=== PATIENT | male | born 1960 | race African-American/Black ===

== ENCOUNTER 2023-11-26 23:17 | Inpatient (IN) | payer OTHER, MEDICARE, SELFPAY ==
[2023-11-26 23:25] VITALS: BP 164/68; PULSE 60; RESP 18; TEMP 36.6; O2SAT 99
[2023-11-26 23:52] VITALS: BMI 25.5
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
[2023-11-27 08:16] VITALS: BP 153/84; PULSE 81; RESP 20; TEMP 36.1; O2SAT 97
[2023-11-27 08:18] VITALS: BP 153/84
[2023-11-27] MEDS: Cyanocobalamin (Vitamin B-12) 1,000 MCG TABLET 1000 MCG PO (08:18)
[2023-11-27] MEDS: amLODIPine Besylate 10 MG TABLET PO (08:18)
[2023-11-27] MEDS: FLUoxetine HCl 20 MG CAPSULE PO (08:19)
[2023-11-27] MEDS: Donepezil HCl 5 MG TABLET PO (08:19)
[2023-11-27] MEDS: Cholecalciferol (Vitamin D3) 25 MCG TABLET PO (08:19)
[2023-11-27] MEDS: Apixaban 5 MG TABLET PO ×2 (08:19→20:39)
[2023-11-27] MEDS: Thiamine HCL 100 MG TABLET PO (08:20)
[2023-11-27] MEDS: Folic Acid 1 MG TABLET PO (08:20)
[2023-11-27 08:35] LABS: Alanine Aminotransferase 34 U/L (0-40); Anion Gap 13 (12-20); Aspartate Amino Transferase 21 U/L (5-37); Bilirubin Total 0.2 mg/dL (0.0-1.0); Blood Urea Nitrogen 12 mg/dL (9-16); Calcium 9.6 mg/dL (8.4-10.2); Carbon Dioxide 24 mmol/L (22-29); Chloride 109 mmol/L (96-108); Creatinine Clr Calc Pharmacy 74.8; Estimated Glomerular Filt Rate > 60; Glucose Fasting 174 mg/dL (60-99); Potassium 4.2 mmol/L (3.3-5.1); Sodium 142 mmol/L (135-145); Total Protein 6.8 g/dL (6.5-8.0); Triglycerides 90 mg/dL (<150)
[2023-11-27 08:36] LABS: Alkaline Phosphatase 204 U/L (39-117); Cholesterol 129 mg/dL (<200); HDL Cholesterol 47 mg/dL (>40); LDL Cholesterol Calculated 64 mg/dL (<100)
[2023-11-27] MEDS: levETIRAcetam 1,000 MG TABLET 500 MG PO ×2 (09:22→20:40)
[2023-11-27] MEDS: Albuterol Sulfate 90 MCG 8 GM INHALER 1 PUFF INHALE (09:23)
--- NOTE | 2023-11-27 09:33 | P.CONHOSP_ITS ---
History of Present Illness Data of Consult Service Date: 11/27/23 Requesting physician: Venessa Stock Primary Care Provider: Unknown Physician HPI Reason for consult: medical H&P 63-year-old male with history of major depressive disorder, alcohol use disorder, history of CVA in 2019 without any known sequela, unspecified cognitive impairment, seizure disorder, type 2 diabetes, hypertension, hyperlipidemia, asthma, diabetic polyneuropathy, and recently diagnosed bilateral pulmonary embolism on Eliquis admitted to Geriatric Psychiatry from [facility] where he had been admitted from 11/01-11/25. Consult placed to hospitalist service for medical H&P. The patient reportedly had been found unresponsive after syncopized. CPR was briefly started by bystanders, but patient was never pulseless. He had denied any loss of consciousness but did report dizziness. He was also initially hypoxic on arrival to [facility] requiring 2- 3 L supplemental O2, CTA of the chest did reveal bilateral extensive segmental and subsegmental PE with concern for right heart strain. However BNP was 45 and troponin was 22. He was started on IV heparin and was ultimately transitioned to Eliquis 10 mg and finally Eliquis 5 mg twice daily which he has continued on now. Apparently the patinet was also initially encephalopathic but resolved. Pt is unavailable to meet at this time, but there does not appear to be any acute medical issues and per nursing, pt has no acute complaints. Review of Systems 2 Review of Systems: Yes Other (pt unavailable for interview/exam) [facility] Medical History Asthma Hyperlipidemia Hypertension Diabetic polyneuropathy History of CVA (cerebrovascular accident) Alcohol use disorder Major depressive disorder Cognitive impairment Seizure disorder Bilateral pulmonary embolism Type 2 diabetes mellitus Social History Household Members: Family Housing: House Do you presently have visiting nurse or other home services: No Comment: 1:1 observation changed to 5 min checks unlocked bathroom Patient Tobacco Use Status: Never used Tobacco Use of substances other than those prescribed or required for medical reasons: No Currently Displaying Signs/Symptoms of Drug Intoxication Withdrawal: No Have you been hit, kicked, punched, or otherwise hurt by someone within the past year? If so, by whom?: No Do you feel safe in your current relationship?: Yes Is there a partner from a previous relationship who is making you feel unsafe now?: No Are you made to feel afraid or neglected: No Advance Directives: No Advance Directives Information Provided: Yes Do you have thoughts of harming others: None Do you have a plan to hurt others: No Plan Recently lost weight without trying: No Nutrition Risks: No Nutritional Risk Poor oral hygiene: No Meds Allergies Allergy/AdvReac Type Severity Reaction Status Date / Time red dye Allergy Severe Anaphylaxis Verified 11/27/23 10:49 Iodinated Contrast Media Allergy Unknown Verified 11/26/23 23:52 lisinopril Allergy Unknown Verified 11/26/23 23:52 shellfish derived Allergy Swelling Verified 11/27/23 10:50 Active Medications: Current Medications Acetaminophen (Acetaminophen 325 Mg Tablet) 650 mg PO Q6H PRN PRN Reason: Headache/Pain Mild Scale (1-3) Al Hydroxide/Mg Hydroxide (Magnesium Hydrox/Alum Hydrox 30 Ml Oral.Susp) 30 ml PO Q6H PRN PRN Reason: Heartburn/Nausea Albuterol Sulfate (Albuterol Sulfate 90 Mcg 8 Gm Inhaler) 1 puff INHALE BID PRN PRN Reason: Wheezing Last Admin: 11/27/23 09:23 Dose: 1 puff Amlodipine Besylate (Amlodipine Besylate 10 Mg Tablet) 10 mg PO DAILY [facility]; Protocol Last Admin: 11/27/23 08:18 Dose: 10 mg Apixaban (Apixaban 5 Mg Tablet) 5 mg PO BID [facility] Last Admin: 11/27/23 08:19 Dose: 5 mg Aspirin (Aspirin Enteric Coated 81 Mg Tablet.Dr) 81 mg PO DAILY [facility] Atorvastatin Calcium (Atorvastatin Calcium 80 Mg Tablet) 80 mg PO BEDTIME [facility] Cyanocobalamin (Cyanocobalamin (Vitamin B-12) 1,000 Mcg Tablet) 1,000 mcg PO DAILY [facility] Last Admin: 11/27/23 08:18 Dose: 1,000 mcg Donepezil HCl (Donepezil Hcl 5 Mg Tablet) 5 mg PO DAILY [facility] Last Admin: 11/27/23 08:19 Dose: 5 mg Famotidine (Famotidine 20 Mg Tablet) 20 mg PO BID PRN PRN Reason: Dyspepsia Fluoxetine HCl (Fluoxetine Hcl 20 Mg Capsule) 20 mg PO DAILY [facility] Last Admin: 11/27/23 08:19 Dose: 20 mg Folic Acid (Folic Acid 1 Mg Tablet) 1 mg PO DAILY [facility] Last Admin: 11/27/23 08:20 Dose: 1 mg Gabapentin (Gabapentin 100 Mg Capsule) 100 mg PO BEDTIME [facility] Hydroxyzine HCl (Hydroxyzine Hcl 25 Mg Tablet) 25 mg PO Q6H PRN PRN Reason: Anxiety Levetiracetam (Levetiracetam 1,000 Mg Tablet) 500 mg PO BID [facility] Last Admin: 11/27/23 09:22 Dose: 500 mg Magnesium Hydroxide (Milk Of Magnesia 30 Ml Oral.Susp) 30 ml PO DAILY PRN PRN Reason: Constipation Melatonin (Melatonin 3 Mg Tablet) 3 mg PO BEDTIME PRN PRN Reason: Insomnia Naltrexone HCl (Naltrexone Hcl 50 Mg Tablet) 50 mg PO DAILY [facility] Nicotine Polacrilex (Nicotine Polacrilex 2 Mg Gum) 4 mg BUCCAL Q2H PRN PRN Reason: Nicotine Cravings Olanzapine (Olanzapine 5 Mg Tablet) 5 mg PO BEDTIME [place] Olanzapine (Olanzapine 5 Mg Tablet) 5 mg PO BID PRN PRN Reason: Agitation Thiamine HCl (Thiamine Hcl 100 Mg Tablet) 100 mg PO DAILY [facility] Last Admin: 11/27/23 08:20 Dose: 100 mg Trazodone HCl (Trazodone Hcl 50 Mg Tablet) 50 mg PO BEDTIME MRX1 PRN PRN Reason: Insomnia Vitamin D (Cholecalciferol (Vitamin D3) 25 Mcg Tablet) 25 mcg PO DAILY [facility] Last Admin: 11/27/23 08:19 Dose: 25 mcg Home Medications ?Medication ?Instructions ?Recorded ?Confirmed ?Last Taken ?Type albuterol sulfate 90 mcg/actuation 1 inh inhalation BID PRN Wheezing 11/27/23 11/27/23 Unknown History aerosol inhaler amlodipine 10 mg tablet 10 mg PO DAILY 11/27/23 11/27/23 11/26/23 08:35 History apixaban 5 mg tablet 5 mg PO BID 11/27/23 11/27/23 11/26/23 21:00 History aspirin 81 mg capsule 81 mg PO DAILY 11/27/23 11/27/23 11/26/23 08:35 History atorvastatin 80 mg tablet 80 mg PO DAILY 11/27/23 11/27/23 11/26/23 21:00 History carboxymethylcellulose sodium 0.5 1 drp ophthalmic (eye) TID PRN Dry 11/27/23 11/27/23 Unknown History % eye drops Eye(S) cholecalciferol (vitamin D3) 25 25 mcg PO DAILY 11/27/23 11/27/23 Unknown History mcg (1,000 unit) tablet cyanocobalamin (vitamin B-12) 1,000 mcg PO DAILY 11/27/23 11/27/23 11/26/23 08:35 History 1,000 mcg tablet donepezil 5 mg tablet 5 mg PO DAILY 11/27/23 11/27/23 11/26/23 21:00 History epinephrine 0.3 mg/0.3 mL 0.3 mg IM ONCE PRN Anaphylaxis 11/27/23 11/27/23 Unknown History injection, auto-injector famotidine 20 mg tablet 20 mg PO BID PRN Dyspepsia 11/27/23 11/27/23 Unknown History fluoxetine 20 mg capsule 20 mg PO DAILY 11/27/23 11/27/23 11/26/23 08:35 History folic acid 1 mg tablet 1 mg PO DAILY 11/27/23 11/27/23 Unknown History gabapentin 100 mg capsule 100 mg PO BEDTIME 11/27/23 11/27/23 11/26/23 21:00 History levetiracetam 500 mg tablet 500 mg PO BID 11/27/23 11/27/23 11/26/23 21:00 History (Keppra) melatonin 3 mg tablet 3 mg PO BEDTIME PRN Insomnia 11/27/23 11/27/23 Unknown History naltrexone 50 mg tablet 50 mg PO DAILY 11/27/23 11/27/23 11/26/23 08:35 History olanzapine 5 mg disintegrating 5 mg PO BEDTIME 11/27/23 11/27/23 11/26/23 21:00 History tablet (Zyprexa Zydis) olanzapine 5 mg disintegrating 5 mg PO BID PRN Agitation 11/27/23 11/27/23 11/26/23 21:00 History tablet (Zyprexa Zydis) thiamine HCl (vitamin B1) 100 mg 100 mg PO DAILY 11/27/23 11/27/23 11/26/23 08:35 History tablet trazodone 100 mg tablet 100 mg PO BEDTIME 11/27/23 11/27/23 11/26/23 21:00 History Physical Exam 2 Vital Signs and Narrative: Vital Signs: Last Vital Signs Temp 96.9 F 11/27/23 08:16 Pulse 81 11/27/23 08:16 Resp 20 11/27/23 08:16 BP 153/84 H 11/27/23 08:18 Pulse Ox 97 11/27/23 08:16 O2 Del Method Room Air 11/27/23 08:16 BMI result Body Mass Index 25.5 Pt unavailable for examination Results Labs 11/27/23 08:09 Labs: Laboratory Results - last 24 hr 11/27/23 08:09 Hold Purple Top SEE NOTE Anion Gap 13 Estim Creat Clear Calc 74.8 Estimated GFR > 60 Fasting Glucose 174 H Calcium 9.6 Total Bilirubin 0.2 AST 21 ALT 34 Alkaline Phosphatase 204 H Total Protein 6.8 Albumin 4.0 Triglycerides 90 Cholesterol 129 LDL Cholesterol, Calc 64 HDL Cholesterol 47 Assessment and Plan (1) Routine medical exam: Status: Acute Plan 63-year-old male with history of major depressive disorder, alcohol use disorder, history of CVA in 2019 without any known sequela, unspecified cognitive impairment, seizure disorder, type 2 diabetes, hypertension, hyperlipidemia, asthma, diabetic polyneuropathy, and recently diagnosed bilateral pulmonary embolism on Eliquis admitted to Geriatric Psychiatry from [facility] where he had been admitted from 11/01-11/25. Consult placed to hospitalist service for medical H&P. #Mood disorder -plan per psychiatry #Alcohol use disorder -plan per psychiatry, outside of window for w/d and per [facility] d/c summary did not exhibit signs of withdrawal while admitted -continue folic acid, thiamine #Bilateral PE -diagnosed at [facility] on CTA chest 10/2023 -continue eliquis 5mg BID -outpt follow up with hematology to determine duration and possible etiology. Pt denied recent travel, surgery, hx of clotting/bleeding disorders # [id number] type 2 diabetes -check POC daily -On admission, diabetes is well controlled with hgb a1c 5.9% -recommend diabetic diet if pt agreeable #sz disorder unspecified -continue keppra #Hx CVA -continue statin, asa # diabetic polyneuropathy -continue gabapentin # hypertension -continue amlodipine 10 mg daily # mild intermittent asthma -no exacerbation, albuterol p.r.n. Thank you for allowing me to participate in this consult. Signing off at this time. Please do not hesitate to call for further questions or for any acute medical issues.
--- NOTE | 2023-11-27 10:50 | PC.NURSE ---
called to clarify allergies. reports pt experienced cardiac/anaphylaxis arrest 30 years ago with red dye. Reported swelling lips with shellfish. does not know reaction to Lisinopril or iodinated contrast media.
[2023-11-27] MEDS: Naltrexone HCl 50 MG TABLET PO (11:12)
[2023-11-27 12:48] LABS: Estimated Average Glucose 123 mg/dL; Hemoglobin A1c % 5.9 % (<6.0)
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
[2023-11-27 20:00] VITALS: BP 124/64; PULSE 72; RESP 16; TEMP 36.8; O2SAT 94
[2023-11-27] MEDS: Atorvastatin Calcium 80 MG TABLET PO (20:39)
[2023-11-28 06:52] LABS: Glucose, Whole Blood 116 mg/dL (60-115)
[2023-11-28] MEDS: Thiamine HCL 100 MG TABLET PO (08:19)
[2023-11-28] MEDS: Cyanocobalamin (Vitamin B-12) 1,000 MCG TABLET 1000 MCG PO (08:19)
[2023-11-28] MEDS: Cholecalciferol (Vitamin D3) 25 MCG TABLET PO (08:19)
[2023-11-28] MEDS: Folic Acid 1 MG TABLET PO (08:19)
[2023-11-28] MEDS: levETIRAcetam 1,000 MG TABLET 500 MG PO ×2 (08:19→20:45)
[2023-11-28 08:20] VITALS: BP 172/87; PULSE 67; RESP 16; TEMP 35.9; O2SAT 99
[2023-11-28] MEDS: Apixaban 5 MG TABLET PO ×2 (08:20→20:46)
[2023-11-28] MEDS: Donepezil HCl 5 MG TABLET PO (08:20)
[2023-11-28] MEDS: FLUoxetine HCl 20 MG CAPSULE PO (08:20)
[2023-11-28] MEDS: Naltrexone HCl 50 MG TABLET PO (08:20)
[2023-11-28] MEDS: amLODIPine Besylate 10 MG TABLET PO (08:22)
[2023-11-28] MEDS: Artificial Tears 15 ML DROPS 2 DROP EYE-BOTH (08:24)
[2023-11-28 08:38] LABS: Glucose, Whole Blood 242 mg/dL (60-115)
[2023-11-28 13:16] VITALS: BMI 26.9
--- NOTE | 2023-11-28 17:16 | P.PNPSI_ITS ---
Subjective Subjective Date of Service: 11/28/23 Reason For Visit: Major Depressive Disorder Interim History: calm, cooperative. continues to feel well, would like to discharge. reports he met with LINA yesterday, who contacted his family. Mental Status Exam Mental Status Exam Narrative: adequately dressed and groomed. cooperative. no PMA/PMR. speech nml rate, amount, loudness, tone, latency. thoughts linear and logical. affect constricted, normo-intense, non-labile. mood i'm great. i feel fine. denies SI/SIBI/HI/AVH. Diagnostics Vital Signs (24Hr): Vital Signs - 24 hr 11/27/23 20:00 11/28/23 08:20 Temperature 98.3 F 96.6 F L Pulse Rate 72 67 Respiratory Rate 16 16 Blood Pressure 124/64 172/87 H Pulse Oximetry 94 99 Oxygen Delivery Method Room Air Room Air BMI result Body Mass Index 26.9 Labs 11/27/23 08:09 Labs: Laboratory Results - last 48 hr 11/27/23 11/28/23 11/28/23 08:09 05:46 08:31 Hold Purple Top SEE NOTE Sodium 142 Potassium 4.2 Chloride 109 H Carbon Dioxide 24 Anion Gap 13 BUN 12 Creatinine 0.92 Estim Creat Clear Calc 74.8 Estimated GFR > 60 POC Glucose 116 H 242 H Fasting Glucose 174 H Estimat Average Glucose 123 Hemoglobin A1c % 5.9 Calcium 9.6 Total Bilirubin 0.2 AST 21 ALT 34 Alkaline Phosphatase 204 H Total Protein 6.8 Albumin 4.0 Triglycerides 90 Cholesterol 129 LDL Cholesterol, Calc 64 HDL Cholesterol 47 Medications Medications Current Medications Acetaminophen (Acetaminophen 325 Mg Tablet) 650 mg PO Q6H PRN PRN Reason: Headache/Pain Mild Scale (1-3) Al Hydroxide/Mg Hydroxide (Magnesium Hydrox/Alum Hydrox 30 Ml Oral.Susp) 30 ml PO Q6H PRN PRN Reason: Heartburn/Nausea Albuterol Sulfate (Albuterol Sulfate 90 Mcg 8 Gm Inhaler) 1 puff INHALE BID PRN PRN Reason: Wheezing Last Admin: 11/27/23 09:23 Dose: 1 puff Amlodipine Besylate (Amlodipine Besylate 10 Mg Tablet) 10 mg PO DAILY [facility]; Protocol Last Admin: 11/28/23 08:22 Dose: 10 mg Apixaban (Apixaban 5 Mg Tablet) 5 mg PO BID [facility] Last Admin: 11/28/23 08:20 Dose: 5 mg Artificial Tears (Artificial Tears 15 Ml Drops) 2 drop EYE-BOTH Q4H PRN PRN Reason: dry eyes Last Admin: 11/28/23 08:24 Dose: 2 drop Aspirin (Aspirin Enteric Coated 81 Mg Tablet.Dr) 81 mg PO DAILY [facility] Atorvastatin Calcium (Atorvastatin Calcium 80 Mg Tablet) 80 mg PO BEDTIME [facility] Last Admin: 11/27/23 20:39 Dose: 80 mg Cyanocobalamin (Cyanocobalamin (Vitamin B-12) 1,000 Mcg Tablet) 1,000 mcg PO DAILY [facility] Last Admin: 11/28/23 08:19 Dose: 1,000 mcg Cyanocobalamin (Cyanocobalamin (Vitamin B-12) 500 Mcg Tablet) 500 mcg PO DAILY [facility] Donepezil HCl (Donepezil Hcl 5 Mg Tablet) 5 mg PO DAILY [facility] Last Admin: 11/28/23 08:20 Dose: 5 mg Famotidine (Famotidine 20 Mg Tablet) 20 mg PO BID PRN PRN Reason: Dyspepsia Fluoxetine HCl (Fluoxetine Hcl 20 Mg Capsule) 20 mg PO DAILY [facility] Last Admin: 11/28/23 08:20 Dose: 20 mg Folic Acid (Folic Acid 1 Mg Tablet) 1 mg PO DAILY [facility] Last Admin: 11/28/23 08:19 Dose: 1 mg Gabapentin (Gabapentin 100 Mg Capsule) 100 mg PO BEDTIME [facility] Hydroxyzine HCl (Hydroxyzine Hcl 25 Mg Tablet) 25 mg PO Q6H PRN PRN Reason: Anxiety Levetiracetam (Levetiracetam 1,000 Mg Tablet) 500 mg PO BID [facility] Last Admin: 11/28/23 08:19 Dose: 500 mg Magnesium Hydroxide (Milk Of Magnesia 30 Ml Oral.Susp) 30 ml PO DAILY PRN PRN Reason: Constipation Melatonin (Melatonin 3 Mg Tablet) 3 mg PO BEDTIME PRN PRN Reason: Insomnia Naltrexone HCl (Naltrexone Hcl 50 Mg Tablet) 50 mg PO DAILY [facility] Last Admin: 11/28/23 08:20 Dose: 50 mg Nicotine Polacrilex (Nicotine Polacrilex 2 Mg Gum) 4 mg BUCCAL Q2H PRN PRN Reason: Nicotine Cravings Olanzapine (Olanzapine 5 Mg Tablet) 5 mg PO BEDTIME [facility] Olanzapine (Olanzapine 5 Mg Tablet) 5 mg PO BID PRN PRN Reason: Agitation Thiamine HCl (Thiamine Hcl 100 Mg Tablet) 100 mg PO DAILY [facility] Last Admin: 11/28/23 08:19 Dose: 100 mg Trazodone HCl (Trazodone Hcl 50 Mg Tablet) 50 mg PO BEDTIME MRX1 PRN PRN Reason: Insomnia Vitamin D (Cholecalciferol (Vitamin D3) 25 Mcg Tablet) 25 mcg PO DAILY [facility] Last Admin: 11/28/23 08:19 Dose: 25 mcg Allergies Allergies Allergy/AdvReac Type Severity Reaction Status Date / Time red dye Allergy Severe Anaphylaxis Verified 11/27/23 10:49 Iodinated Contrast Media Allergy Unknown Verified 11/26/23 23:52 lisinopril Allergy Unknown Verified 11/26/23 23:52 shellfish derived Allergy Swelling Verified 11/27/23 10:50 Assessment & Plan Assessment & Plan (1) Diabetic polyneuropathy: Status: Acute Code(s): E11.42 - Type 2 diabetes mellitus with diabetic polyneuropathy (2) Type 2 diabetes mellitus: Status: Acute Code(s): E11.9 - Type 2 diabetes mellitus without complications (3) Seizure disorder: Status: Acute Code(s): G40.909 - Epilepsy, unspecified, not intractable, without status epilepticus (4) Cognitive impairment: Status: Acute Code(s): R41.89 - Other symptoms and signs involving cognitive functions and awareness (5) Alcohol use disorder: Status: Acute Code(s): F10.90 - Alcohol use, unspecified, uncomplicated (6) Bilateral pulmonary embolism: Status: Acute Code(s): I26.99 - Other pulmonary embolism without acute cor pulmonale (7) Major depressive disorder: Status: Acute Code(s): F32.9 - Major depressive disorder, single episode, unspecified (8) History of CVA (cerebrovascular accident): Status: Acute Code(s): Z86.73 - Personal history of transient ischemic attack (TIA), and cerebral infarction without residual deficits Plan 11/26: continue transfer medications. pt appears well on his way to better from a presumed delirium related to his B/L PEs in late october. observe for several days, return home if stable. 11/27: stable. continue current mgmt. Reason for continued inpatient stay Substantial Risk for: rapid decompensation Time Spent With Patient Time: Total time managing care of this patient today ____ minutes.
[2023-11-28] MEDS: Acetaminophen 325 MG TABLET 650 MG PO (18:49)
[2023-11-28 20:00] VITALS: BP 119/67; PULSE 84; RESP 16; TEMP 36.6; O2SAT 97
[2023-11-28 20:13] LABS: Glucose, Whole Blood 154 mg/dL (60-115)
[2023-11-28] MEDS: Atorvastatin Calcium 80 MG TABLET PO (20:46)
[2023-11-28] MEDS: OLANZapine 5 MG TABLET PO (20:46)
[2023-11-28] MEDS: traZODone HCL 50 MG TABLET PO (20:48)
[2023-11-29 06:50] LABS: Glucose, Whole Blood 109 mg/dL (60-115)
[2023-11-29] MEDS: Naltrexone HCl 50 MG TABLET PO (08:29)
[2023-11-29] MEDS: FLUoxetine HCl 20 MG CAPSULE PO (08:29)
[2023-11-29] MEDS: Cyanocobalamin (Vitamin B-12) 1,000 MCG TABLET 1000 MCG PO (08:29)
[2023-11-29] MEDS: Cyanocobalamin (Vitamin B-12) 500 MCG TABLET PO (08:29)
[2023-11-29] MEDS: Donepezil HCl 5 MG TABLET PO (08:29)
[2023-11-29] MEDS: Folic Acid 1 MG TABLET PO (08:29)
[2023-11-29 08:30] VITALS: BP 162/86; PULSE 74; RESP 18; TEMP 36.2; O2SAT 97
[2023-11-29] MEDS: levETIRAcetam 1,000 MG TABLET 500 MG PO ×2 (08:31→20:54)
[2023-11-29] MEDS: amLODIPine Besylate 10 MG TABLET PO (08:31)
[2023-11-29] MEDS: Apixaban 5 MG TABLET PO ×2 (08:31→20:48)
[2023-11-29] MEDS: Cholecalciferol (Vitamin D3) 25 MCG TABLET PO (08:32)
[2023-11-29] MEDS: Thiamine HCL 100 MG TABLET PO (08:32)
[2023-11-29 15:20] LABS: Folate 9.9 ng/mL (> or = 4.0); Vitamin B12 1830 pg/mL (200-900)
--- NOTE | 2023-11-29 17:04 | HO.PSYCHPN ---
Subjective Subjective Date of Service: 11/29/23 Reason For Visit: Major Depressive Disorder Subjective Notes: Conditional Voluntary Interim History: The nursing staff reported the patient had been compliant with treatment. He looks confused but easily redirectable. On interview the patient had been calm, cooperative and stated that he wants to go back home. [facility] and [facility] did not show Wernicke-Korsakoff findings such as distraction of the mamillary bodies. Only diffuse changes in white matter. Mental Status Exam Mental Status Exam Patient Appearance: Appropriate Patient Orientation: Person and Situation Level of Consciousness: Awake and Appropriate Patient Behavior: Guarded and Passive Mood Description: Calm Affect Description: Constricted Patient Cognition Impaired: Yes Ability to Follow Directions: Good Speech Pattern: Clear Hallucinations: None Delusions: Not Present Thought Process: Distracted and Slowed Thinking Thought Content: positive for [place] and positive for Poverty of Content Judgement: Fair Diagnostics Vital Signs (24Hr): Vital Signs - 24 hr 11/28/23 20:00 11/29/23 08:30 Temperature 98 F 97.2 F Pulse Rate 84 74 Respiratory Rate 16 18 Blood Pressure 119/67 162/86 H Pulse Oximetry 97 97 Oxygen Delivery Method Room Air Room Air BMI result Body Mass Index 26.9 Labs 11/27/23 08:09 Labs: Laboratory Results - last 48 hr 11/28/23 11/28/23 11/28/23 05:46 08:31 20:06 POC Glucose 116 H 242 H 154 H Vitamin B12 Folate 11/29/23 11/29/23 06:33 08:15 POC Glucose 109 Vitamin B12 1830 H Folate 9.9 Medications Medications Current Medications Acetaminophen (Acetaminophen 325 Mg Tablet) 650 mg PO Q6H PRN PRN Reason: Headache/Pain Mild Scale (1-3) Last Admin: 11/28/23 18:49 Dose: 650 mg Al Hydroxide/Mg Hydroxide (Magnesium Hydrox/Alum Hydrox 30 Ml Oral.Susp) 30 ml PO Q6H PRN PRN Reason: Heartburn/Nausea Albuterol Sulfate (Albuterol Sulfate 90 Mcg 8 Gm Inhaler) 1 puff INHALE BID PRN PRN Reason: Wheezing Last Admin: 11/27/23 09:23 Dose: 1 puff Amlodipine Besylate (Amlodipine Besylate 10 Mg Tablet) 10 mg PO DAILY [facility]; Protocol Last Admin: 11/29/23 08:31 Dose: 10 mg Apixaban (Apixaban 5 Mg Tablet) 5 mg PO BID [facility] Last Admin: 11/29/23 08:31 Dose: 5 mg Artificial Tears (Artificial Tears 15 Ml Drops) 2 drop EYE-BOTH Q4H PRN PRN Reason: dry eyes Last Admin: 11/28/23 08:24 Dose: 2 drop Aspirin (Aspirin Enteric Coated 81 Mg Tablet.Dr) 81 mg PO DAILY [facility] Atorvastatin Calcium (Atorvastatin Calcium 80 Mg Tablet) 80 mg PO BEDTIME [facility] Last Admin: 11/28/23 20:46 Dose: 80 mg Cyanocobalamin (Cyanocobalamin (Vitamin B-12) 1,000 Mcg Tablet) 1,000 mcg PO DAILY [facility] Last Admin: 11/29/23 08:29 Dose: 1,000 mcg Cyanocobalamin (Cyanocobalamin (Vitamin B-12) 500 Mcg Tablet) 500 mcg PO DAILY [facility] Last Admin: 11/29/23 08:29 Dose: 500 mcg Donepezil HCl (Donepezil Hcl 5 Mg Tablet) 5 mg PO DAILY [facility] Last Admin: 11/29/23 08:29 Dose: 5 mg Famotidine (Famotidine 20 Mg Tablet) 20 mg PO BID PRN PRN Reason: Dyspepsia Fluoxetine HCl (Fluoxetine Hcl 20 Mg Capsule) 20 mg PO DAILY [facility] Last Admin: 11/29/23 08:29 Dose: 20 mg Folic Acid (Folic Acid 1 Mg Tablet) 1 mg PO DAILY [facility] Last Admin: 11/29/23 08:29 Dose: 1 mg Gabapentin (Gabapentin 100 Mg Capsule) 100 mg PO BEDTIME [facility] Hydroxyzine HCl (Hydroxyzine Hcl 25 Mg Tablet) 25 mg PO Q6H PRN PRN Reason: Anxiety Levetiracetam (Levetiracetam 1,000 Mg Tablet) 500 mg PO BID [facility] Last Admin: 11/29/23 08:31 Dose: 500 mg Magnesium Hydroxide (Milk Of Magnesia 30 Ml Oral.Susp) 30 ml PO DAILY PRN PRN Reason: Constipation Melatonin (Melatonin 3 Mg Tablet) 3 mg PO BEDTIME PRN PRN Reason: Insomnia Naltrexone HCl (Naltrexone Hcl 50 Mg Tablet) 50 mg PO DAILY [facility] Last Admin: 11/29/23 08:29 Dose: 50 mg Nicotine Polacrilex (Nicotine Polacrilex 2 Mg Gum) 4 mg BUCCAL Q2H PRN PRN Reason: Nicotine Cravings Olanzapine (Olanzapine 5 Mg Tablet) 5 mg PO BEDTIME [facility] Last Admin: 11/28/23 20:46 Dose: 5 mg Olanzapine (Olanzapine 5 Mg Tablet) 5 mg PO BID PRN PRN Reason: Agitation Thiamine HCl (Thiamine Hcl 100 Mg Tablet) 100 mg PO DAILY [facility] Last Admin: 11/29/23 08:32 Dose: 100 mg Trazodone HCl (Trazodone Hcl 50 Mg Tablet) 50 mg PO BEDTIME MRX1 PRN PRN Reason: Insomnia Last Admin: 11/28/23 20:48 Dose: 50 mg Vitamin D (Cholecalciferol (Vitamin D3) 25 Mcg Tablet) 25 mcg PO DAILY [facility] Last Admin: 11/29/23 08:32 Dose: 25 mcg Allergies Allergies Allergy/AdvReac Type Severity Reaction Status Date / Time red dye Allergy Severe Anaphylaxis Verified 11/27/23 10:49 Iodinated Contrast Media Allergy Unknown Verified 11/26/23 23:52 lisinopril Allergy Unknown Verified 11/26/23 23:52 shellfish derived Allergy Swelling Verified 11/27/23 10:50 Assessment & Plan Assessment & Plan (1) Diabetic polyneuropathy: Status: Acute Code(s): E11.42 - Type 2 diabetes mellitus with diabetic polyneuropathy (2) Type 2 diabetes mellitus: Status: Acute Code(s): E11.9 - Type 2 diabetes mellitus without complications (3) Seizure disorder: Status: Acute Code(s): G40.909 - Epilepsy, unspecified, not intractable, without status epilepticus (4) Cognitive impairment: Status: Acute Code(s): R41.89 - Other symptoms and signs involving cognitive functions and awareness (5) Alcohol use disorder: Status: Acute Code(s): F10.90 - Alcohol use, unspecified, uncomplicated (6) Bilateral pulmonary embolism: Status: Acute Code(s): I26.99 - Other pulmonary embolism without acute cor pulmonale (7) Major depressive disorder: Status: Acute Code(s): F32.9 - Major depressive disorder, single episode, unspecified (8) History of CVA (cerebrovascular accident): Status: Acute Code(s): Z86.73 - Personal history of transient ischemic attack (TIA), and cerebral infarction without residual deficits Plan 11/26: continue transfer medications. pt appears well on his way to [facility] from a presumed delirium related to his B/L PEs in late october. observe for several days, return home if stable. 11/27: stable. continue current mgmt. 11/28 continue same treatment Reason for continued inpatient stay Substantial Risk for: inability to function, rapid decompensation and med/psych decompensation Time Spent With Patient Time: Total time managing care of this patient today __20__ minutes.
[2023-11-29 20:00] VITALS: BP 136/74; PULSE 68; RESP 16; TEMP 36.1; O2SAT 96
[2023-11-29] MEDS: OLANZapine 5 MG TABLET PO (20:48)
[2023-11-29] MEDS: Atorvastatin Calcium 80 MG TABLET PO (20:48)
[2023-11-29] MEDS: traZODone HCL 50 MG TABLET PO (20:52)
[2023-11-29 21:04] LABS: Glucose, Whole Blood 234 mg/dL (60-115)
[2023-11-30 03:33] LABS: Syphilis Screen Nonreactive (Nonreactive)
[2023-11-30] MEDS: Acetaminophen 325 MG TABLET 650 MG PO (06:23)
[2023-11-30 06:45] LABS: Glucose, Whole Blood 106 mg/dL (60-115)
[2023-11-30 08:49] VITALS: BP 141/79; PULSE 70; RESP 18; TEMP 36.2; O2SAT 97
--- NOTE | 2023-11-30 08:49 | HO.PSYCHPN ---
Subjective Subjective Date of Service: 11/30/23 Reason For Visit: Major Depressive Disorder Interim History: Review of care with pt's team. He is talking with team about needing to stop drinking. Pt is in the milieu. Alert, oriented. States he feels great and is ready to go home. Denies questions or concerns. Medication Compliance: Yes Side effects from medications: No Review of Systems Acute medical concerns: No Medical Review of Systems: unchanged Review of Systems Review of Systems Yes all other systems are reviewed and are negative (denies) Mental Status Exam Mental Status Exam Patient Appearance: Appropriate Patient Orientation: Person, Place and Situation Level of Consciousness: Alert Patient Behavior: Talkative and Good Eye Contact Mood Description: Appropriate Affect Description: Appropriate Ability to Follow Directions: Good Speech Pattern: Spontaneous Speech Memory Description: Episodic Impaired Hallucinations: None Delusions: Not Present Thought Process: Goal Oriented Thought Content: positive for Goal Oriented Judgement: Fair Diagnostics Vital Signs (24Hr): Vital Signs - 24 hr 11/29/23 20:00 Temperature 97 F Pulse Rate 68 Respiratory Rate 16 Blood Pressure 136/74 Pulse Oximetry 96 Oxygen Delivery Method Room Air BMI result Body Mass Index 26.9 Labs 11/27/23 08:09 Labs: Laboratory Results - last 48 hr 11/28/23 11/29/23 11/29/23 20:06 06:33 08:15 POC Glucose 154 H 109 Vitamin B12 1830 H Folate 9.9 T.pallidum Ab (EIA) Nonreactive 11/29/23 11/30/23 20:58 06:27 POC Glucose 234 H 106 Vitamin B12 Folate T.pallidum Ab (EIA) Medications Medications Current Medications Acetaminophen (Acetaminophen 325 Mg Tablet) 650 mg PO Q6H PRN PRN Reason: Headache/Pain Mild Scale (1-3) Last Admin: 11/30/23 06:23 Dose: 650 mg Al Hydroxide/Mg Hydroxide (Magnesium Hydrox/Alum Hydrox 30 Ml Oral.Susp) 30 ml PO Q6H PRN PRN Reason: Heartburn/Nausea Albuterol Sulfate (Albuterol Sulfate 90 Mcg 8 Gm Inhaler) 1 puff INHALE BID PRN PRN Reason: Wheezing Last Admin: 11/27/23 09:23 Dose: 1 puff Amlodipine Besylate (Amlodipine Besylate 10 Mg Tablet) 10 mg PO DAILY [facility]; Protocol Last Admin: 11/29/23 08:31 Dose: 10 mg Apixaban (Apixaban 5 Mg Tablet) 5 mg PO BID [facility] Last Admin: 11/29/23 20:48 Dose: 5 mg Artificial Tears (Artificial Tears 15 Ml Drops) 2 drop EYE-BOTH Q4H PRN PRN Reason: dry eyes Last Admin: 11/28/23 08:24 Dose: 2 drop Aspirin (Aspirin Enteric Coated 81 Mg Tablet.Dr) 81 mg PO DAILY [facility] Atorvastatin Calcium (Atorvastatin Calcium 80 Mg Tablet) 80 mg PO BEDTIME [facility] Last Admin: 11/29/23 20:48 Dose: 80 mg Cyanocobalamin (Cyanocobalamin (Vitamin B-12) 1,000 Mcg Tablet) 1,000 mcg PO DAILY [facility] Last Admin: 11/29/23 08:29 Dose: 1,000 mcg Cyanocobalamin (Cyanocobalamin (Vitamin B-12) 500 Mcg Tablet) 500 mcg PO DAILY [facility] Last Admin: 11/29/23 08:29 Dose: 500 mcg Donepezil HCl (Donepezil Hcl 5 Mg Tablet) 5 mg PO DAILY [facility] Last Admin: 11/29/23 08:29 Dose: 5 mg Famotidine (Famotidine 20 Mg Tablet) 20 mg PO BID PRN PRN Reason: Dyspepsia Fluoxetine HCl (Fluoxetine Hcl 20 Mg Capsule) 20 mg PO DAILY [facility] Last Admin: 11/29/23 08:29 Dose: 20 mg Folic Acid (Folic Acid 1 Mg Tablet) 1 mg PO DAILY [facility] Last Admin: 11/29/23 08:29 Dose: 1 mg Gabapentin (Gabapentin 100 Mg Capsule) 100 mg PO BEDTIME [facility] Hydroxyzine HCl (Hydroxyzine Hcl 25 Mg Tablet) 25 mg PO Q6H PRN PRN Reason: Anxiety Levetiracetam (Levetiracetam 1,000 Mg Tablet) 500 mg PO BID [facility] Last Admin: 11/29/23 20:54 Dose: 500 mg Magnesium Hydroxide (Milk Of Magnesia 30 Ml Oral.Susp) 30 ml PO DAILY PRN PRN Reason: Constipation Melatonin (Melatonin 3 Mg Tablet) 3 mg PO BEDTIME PRN PRN Reason: Insomnia Naltrexone HCl (Naltrexone Hcl 50 Mg Tablet) 50 mg PO DAILY [facility] Last Admin: 11/29/23 08:29 Dose: 50 mg Nicotine Polacrilex (Nicotine Polacrilex 2 Mg Gum) 4 mg BUCCAL Q2H PRN PRN Reason: Nicotine Cravings Olanzapine (Olanzapine 5 Mg Tablet) 5 mg PO BEDTIME [facility] Last Admin: 11/29/23 20:48 Dose: 5 mg Olanzapine (Olanzapine 5 Mg Tablet) 5 mg PO BID PRN PRN Reason: Agitation Thiamine HCl (Thiamine Hcl 100 Mg Tablet) 100 mg PO DAILY [facility] Last Admin: 11/29/23 08:32 Dose: 100 mg Trazodone HCl (Trazodone Hcl 50 Mg Tablet) 50 mg PO BEDTIME MRX1 PRN PRN Reason: Insomnia Last Admin: 11/29/23 20:52 Dose: 50 mg Vitamin D (Cholecalciferol (Vitamin D3) 25 Mcg Tablet) 25 mcg PO DAILY [facility] Last Admin: 11/29/23 08:32 Dose: 25 mcg Allergies Allergies Allergy/AdvReac Type Severity Reaction Status Date / Time red dye Allergy Severe Anaphylaxis Verified 11/27/23 10:49 Iodinated Contrast Media Allergy Unknown Verified 11/26/23 23:52 lisinopril Allergy Unknown Verified 11/26/23 23:52 shellfish derived Allergy Swelling Verified 11/27/23 10:50 Assessment & Plan Assessment & Plan (1) Diabetic polyneuropathy: Status: Acute Code(s): E11.42 - Type 2 diabetes mellitus with diabetic polyneuropathy (2) Type 2 diabetes mellitus: Status: Acute Code(s): E11.9 - Type 2 diabetes mellitus without complications (3) Seizure disorder: Status: Acute Code(s): G40.909 - Epilepsy, unspecified, not intractable, without status epilepticus (4) Cognitive impairment: Status: Acute Code(s): R41.89 - Other symptoms and signs involving cognitive functions and awareness (5) Alcohol use disorder: Status: Acute Code(s): F10.90 - Alcohol use, unspecified, uncomplicated (6) Bilateral pulmonary embolism: Status: Acute Code(s): I26.99 - Other pulmonary embolism without acute cor pulmonale (7) Major depressive disorder: Status: Acute Code(s): F32.9 - Major depressive disorder, single episode, unspecified (8) History of CVA (cerebrovascular accident): Status: Acute Code(s): Z86.73 - Personal history of transient ischemic attack (TIA), and cerebral infarction without residual deficits Plan 11/26: continue transfer medications. pt appears well on his way to [facility] from a presumed delirium related to his B/L PEs in late october. observe for several days, return home if stable. 11/27: stable. continue current mgmt. 11/28 continue same treatment 11/29: Continue treatment Reason for continued inpatient stay Substantial Risk for: rapid decompensation Time Spent With Patient Time: Total time managing care of this patient today ____ minutes.
[2023-11-30] MEDS: FLUoxetine HCl 20 MG CAPSULE PO (08:51)
[2023-11-30] MEDS: Folic Acid 1 MG TABLET PO (08:51)
[2023-11-30] MEDS: Apixaban 5 MG TABLET PO ×2 (08:51→20:28)
[2023-11-30] MEDS: Cholecalciferol (Vitamin D3) 25 MCG TABLET PO (08:51)
[2023-11-30] MEDS: levETIRAcetam 1,000 MG TABLET 500 MG PO ×2 (08:51→20:28)
[2023-11-30] MEDS: Cyanocobalamin (Vitamin B-12) 1,000 MCG TABLET 1000 MCG PO (08:51)
[2023-11-30] MEDS: amLODIPine Besylate 10 MG TABLET PO (08:51)
[2023-11-30] MEDS: Donepezil HCl 5 MG TABLET PO (08:51)
[2023-11-30] MEDS: Thiamine HCL 100 MG TABLET PO (08:51)
[2023-11-30] MEDS: Naltrexone HCl 50 MG TABLET PO (08:51)
[2023-11-30] MEDS: Cyanocobalamin (Vitamin B-12) 500 MCG TABLET PO (08:52)
[2023-11-30 20:00] VITALS: BP 145/78; PULSE 77; RESP 16; TEMP 36; O2SAT 99
[2023-11-30] MEDS: traZODone HCL 50 MG TABLET PO (20:28)
[2023-11-30] MEDS: Atorvastatin Calcium 80 MG TABLET PO (20:28)
[2023-11-30] MEDS: OLANZapine 5 MG TABLET PO (20:28)
[2023-11-30 20:42] LABS: Glucose, Whole Blood 258 mg/dL (60-115)
[2023-12-01 06:52] LABS: Glucose, Whole Blood 286 mg/dL (60-115)
[2023-12-01 08:20] VITALS: BP 175/78; PULSE 91; RESP 16; TEMP 36.3; O2SAT 96
[2023-12-01] MEDS: Acetaminophen 325 MG TABLET 650 MG PO (08:22)
[2023-12-01] MEDS: Apixaban 5 MG TABLET PO ×2 (08:23→20:13)
[2023-12-01] MEDS: Cyanocobalamin (Vitamin B-12) 500 MCG TABLET PO (08:23)
[2023-12-01] MEDS: FLUoxetine HCl 20 MG CAPSULE PO (08:23)
[2023-12-01] MEDS: levETIRAcetam 1,000 MG TABLET 500 MG PO ×2 (08:23→20:12)
[2023-12-01] MEDS: Cyanocobalamin (Vitamin B-12) 1,000 MCG TABLET 1000 MCG PO (08:24)
[2023-12-01] MEDS: amLODIPine Besylate 10 MG TABLET PO (08:24)
[2023-12-01] MEDS: Cholecalciferol (Vitamin D3) 25 MCG TABLET PO (08:24)
[2023-12-01] MEDS: Donepezil HCl 5 MG TABLET PO (08:24)
[2023-12-01] MEDS: Thiamine HCL 100 MG TABLET PO (08:25)
[2023-12-01] MEDS: Naltrexone HCl 50 MG TABLET PO (08:25)
[2023-12-01] MEDS: Folic Acid 1 MG TABLET PO (08:25)
--- NOTE | 2023-12-01 12:42 | P.PNPSI_ITS ---
Subjective Subjective Date of Service: 12/01/23 Reason For Visit: Major Depressive Disorder Interim History: Review with team. Pt reports feeling well, asking to discharge to home. BP this a.m. 175/78 97. After meds 169/86 77. Amlodipine increase to 12.5 mg a.m. Medication Compliance: Yes Side effects from medications: No Attending Groups: Intermittent Review of Systems HTN Medical Review of Systems: unchanged Review of Systems Review of Systems Yes all other systems are reviewed and are negative (denies) Mental Status Exam Mental Status Exam Patient Appearance: Appropriate Patient Orientation: Person, Place and Situation Level of Consciousness: Alert Patient Behavior: Talkative and Good Eye Contact Mood Description: Appropriate Affect Description: Appropriate Ability to Follow Directions: Good Speech Pattern: Spontaneous Speech Memory Description: Episodic Impaired Hallucinations: None Delusions: Not Present Thought Process: Goal Oriented Thought Content: positive for Goal Oriented Judgement: Fair Diagnostics Vital Signs (24Hr): Vital Signs - 24 hr 11/30/23 20:00 12/01/23 08:20 Temperature 96.8 F 97.4 F Pulse Rate 77 91 Respiratory Rate 16 16 Blood Pressure 145/78 H 175/78 H Pulse Oximetry 99 96 Oxygen Delivery Method Room Air Room Air BMI result Body Mass Index 26.9 Labs 11/27/23 08:09 Labs: Laboratory Results - last 48 hr 11/29/23 11/29/23 11/30/23 08:15 20:58 06:27 POC Glucose 234 H 106 Vitamin B12 1830 H Folate 9.9 T.pallidum Ab (EIA) Nonreactive 11/30/23 12/01/23 20:26 06:39 POC Glucose 258 H 286 H Vitamin B12 Folate T.pallidum Ab (EIA) Medications Medications Current Medications Acetaminophen (Acetaminophen 325 Mg Tablet) 650 mg PO Q6H PRN PRN Reason: Headache/Pain Mild Scale (1-3) Last Admin: 12/01/23 08:22 Dose: 650 mg Al Hydroxide/Mg Hydroxide (Magnesium Hydrox/Alum Hydrox 30 Ml Oral.Susp) 30 ml PO Q6H PRN PRN Reason: Heartburn/Nausea Albuterol Sulfate (Albuterol Sulfate 90 Mcg 8 Gm Inhaler) 1 puff INHALE BID PRN PRN Reason: Wheezing Last Admin: 11/27/23 09:23 Dose: 1 puff Amlodipine Besylate (Amlodipine Besylate 10 Mg Tablet) 10 mg PO DAILY COUNT [facility]; Protocol Last Admin: 12/01/23 08:24 Dose: 10 mg Apixaban (Apixaban 5 Mg Tablet) 5 mg PO BID COUNT [facility]CLUDES [facility] Last Admin: 12/01/23 08:23 Dose: 5 mg Artificial Tears (Artificial Tears 15 Ml Drops) 2 drop EYE-BOTH Q4H PRN PRN Reason: dry eyes Last Admin: 11/28/23 08:24 Dose: 2 drop Aspirin (Aspirin Enteric Coated 81 Mg Tablet.Dr) 81 mg PO DAILY COUNT [facility]CLUD[facility] Atorvastatin Calcium (Atorvastatin Calcium 80 Mg Tablet) 80 mg PO BEDTIME COUNT [facility]CLUDES [facility] Last Admin: 11/30/23 20:28 Dose: 80 mg Cyanocobalamin (Cyanocobalamin (Vitamin B-12) 1,000 Mcg Tablet) 1,000 mcg PO DAILY COUNT [facility]CLUD[facility] Last Admin: 12/01/23 08:24 Dose: 1,000 mcg Cyanocobalamin (Cyanocobalamin (Vitamin B-12) 500 Mcg Tablet) 500 mcg PO DAILY COUNT [facility]CLUD[facility] Last Admin: 12/01/23 08:23 Dose: 500 mcg Donepezil HCl (Donepezil Hcl 5 Mg Tablet) 5 mg PO DAILY COUNT [facility]CLUD[facility] Last Admin: 12/01/23 08:24 Dose: 5 mg Famotidine (Famotidine 20 Mg Tablet) 20 mg PO BID PRN PRN Reason: Dyspepsia Fluoxetine HCl (Fluoxetine Hcl 20 Mg Capsule) 20 mg PO DAILY COUNT [facility]CLUD[facility] Last Admin: 12/01/23 08:23 Dose: 20 mg Folic Acid (Folic Acid 1 Mg Tablet) 1 mg PO DAILY COUNT [facility]CLUD[facility] Last Admin: 12/01/23 08:25 Dose: 1 mg Gabapentin (Gabapentin 100 Mg Capsule) 100 mg PO BEDTIME COUNT [facility]CLUDES [facility] Hydroxyzine HCl (Hydroxyzine Hcl 25 Mg Tablet) 25 mg PO Q6H PRN PRN Reason: Anxiety Levetiracetam (Levetiracetam 1,000 Mg Tablet) 500 mg PO BID COUNT [facility]CLUD[facility] Last Admin: 12/01/23 08:23 Dose: 500 mg Magnesium Hydroxide (Milk Of Magnesia 30 Ml Oral.Susp) 30 ml PO DAILY PRN PRN Reason: Constipation Melatonin (Melatonin 3 Mg Tablet) 3 mg PO BEDTIME PRN PRN Reason: Insomnia Naltrexone HCl (Naltrexone Hcl 50 Mg Tablet) 50 mg PO DAILY COUNT [facility]CLUDES [facility] Last Admin: 12/01/23 08:25 Dose: 50 mg Nicotine Polacrilex (Nicotine Polacrilex 2 Mg Gum) 4 mg BUCCAL Q2H PRN PRN Reason: Nicotine Cravings Olanzapine (Olanzapine 5 Mg Tablet) 5 mg PO BEDTIME [facility] Last Admin: 11/30/23 20:28 Dose: 5 mg Olanzapine (Olanzapine 5 Mg Tablet) 5 mg PO BID PRN PRN Reason: Agitation Thiamine HCl (Thiamine Hcl 100 Mg Tablet) 100 mg PO DAILY [facility] Last Admin: 12/01/23 08:25 Dose: 100 mg Trazodone HCl (Trazodone Hcl 50 Mg Tablet) 50 mg PO BEDTIME MRX1 PRN PRN Reason: Insomnia Last Admin: 11/30/23 20:28 Dose: 50 mg Vitamin D (Cholecalciferol (Vitamin D3) 25 Mcg Tablet) 25 mcg PO DAILY COUNT [facility]CLUD[facility] Last Admin: 12/01/23 08:24 Dose: 25 mcg Allergies Allergies Allergy/AdvReac Type Severity Reaction Status Date / Time red dye Allergy Severe Anaphylaxis Verified 11/27/23 10:49 Iodinated Contrast Media Allergy Unknown Verified 11/26/23 23:52 lisinopril Allergy Unknown Verified 11/26/23 23:52 shellfish derived Allergy Swelling Verified 11/27/23 10:50 Assessment & Plan Assessment & Plan (1) Diabetic polyneuropathy: Status: Acute Code(s): E11.42 - Type 2 diabetes mellitus with diabetic polyneuropathy (2) Type 2 diabetes mellitus: Status: Acute Code(s): E11.9 - Type 2 diabetes mellitus without complications (3) Seizure disorder: Status: Acute Code(s): G40.909 - Epilepsy, unspecified, not intractable, without status epilepticus (4) Cognitive impairment: Status: Acute Code(s): R41.89 - Other symptoms and signs involving cognitive functions and awareness (5) Alcohol use disorder: Status: Acute Code(s): F10.90 - Alcohol use, unspecified, uncomplicated (6) Bilateral pulmonary embolism: Status: Acute Code(s): I26.99 - Other pulmonary embolism without acute cor pulmonale (7) Major depressive disorder: Status: Acute Code(s): F32.9 - Major depressive disorder, single episode, unspecified (8) History of CVA (cerebrovascular accident): Status: Acute Code(s): Z86.73 - Personal history of transient ischemic attack (TIA), and cerebral infarction without residual deficits Plan 7/17: continue transfer medications. pt appears well on his way to better from a presumed delirium related to his B/L PEs in late october. observe for several days, return home if stable. 11/27: stable. continue current mgmt. 11/28 continue same treatment 11/29: Continue treatment 11/30: HTN- Increase Amlodipine to 12.5 mg a.m. Reason for continued inpatient stay Substantial Risk for: rapid decompensation Time Spent With Patient Time: Total time managing care of this patient today ____ minutes.
[2023-12-01 20:00] VITALS: BP 175/94; PULSE 76; RESP 16; TEMP 36.6; O2SAT 95
[2023-12-01] MEDS: Atorvastatin Calcium 80 MG TABLET PO (20:12)
[2023-12-01] MEDS: OLANZapine 5 MG TABLET PO (20:13)
[2023-12-01] MEDS: traZODone HCL 50 MG TABLET PO (20:13)
[2023-12-02 00:33] LABS: Glucose, Whole Blood 230 mg/dL (60-115)
[2023-12-02 06:55] LABS: Glucose, Whole Blood 193 mg/dL (60-115)
[2023-12-02 08:23] VITALS: BP 157/89; PULSE 85; RESP 18; TEMP 36.2; O2SAT 95
[2023-12-02] MEDS: Donepezil HCl 5 MG TABLET PO (08:25)
[2023-12-02] MEDS: levETIRAcetam 1,000 MG TABLET 500 MG PO ×2 (08:25→20:29)
[2023-12-02] MEDS: Acetaminophen 325 MG TABLET 650 MG PO (08:25)
[2023-12-02 08:26] VITALS: BP 157/89
[2023-12-02] MEDS: Naltrexone HCl 50 MG TABLET PO (08:26)
[2023-12-02] MEDS: Apixaban 5 MG TABLET PO ×2 (08:26→20:29)
[2023-12-02] MEDS: Cyanocobalamin (Vitamin B-12) 500 MCG TABLET PO (08:26)
[2023-12-02] MEDS: Folic Acid 1 MG TABLET PO (08:26)
[2023-12-02] MEDS: amLODIPine Besylate 2.5 MG TABLET 12.5 MG PO (08:26)
[2023-12-02] MEDS: Thiamine HCL 100 MG TABLET PO (08:26)
[2023-12-02] MEDS: Cyanocobalamin (Vitamin B-12) 1,000 MCG TABLET 1000 MCG PO (08:26)
[2023-12-02] MEDS: Cholecalciferol (Vitamin D3) 25 MCG TABLET PO (08:26)
[2023-12-02] MEDS: FLUoxetine HCl 20 MG CAPSULE PO (08:26)
[2023-12-02] MEDS: Artificial Tears 15 ML DROPS 2 DROP EYE-BOTH (08:27)
[2023-12-02] MEDS: Albuterol Sulfate 90 MCG 8 GM INHALER 1 PUFF INHALE ×2 (08:32→20:28)
--- NOTE | 2023-12-02 15:32 | P.PNPSI_ITS ---
Subjective Subjective Date of Service: 12/02/23 Reason For Visit: Major Depressive Disorder Subjective Notes: Conditional Voluntary Interim History: The nursing staff reported the patient had been compliant with treatment, he received Tylenol p.r.n. headaches. Today we had a family meeting over the phone with the social science professor and her , no changes in mental status. So far the patient denies any new symptoms pleasant, cooperative redirectable. We discussed about discharge planning for next Saturday Mental Status Exam Mental Status Exam Patient Appearance: Appropriate Patient Orientation: Person Level of Consciousness: Awake and Alert Patient Behavior: Guarded and Passive Mood Description: Withdrawn Affect Description: Constricted Patient Cognition Impaired: Yes Ability to Follow Directions: Good Speech Pattern: Clear Hallucinations: None Delusions: Not Present Thought Process: Distracted and Slowed Thinking Thought Content: positive for [place] and positive for Poverty of Content Judgement: Fair Diagnostics Vital Signs (24Hr): Vital Signs - 24 hr 12/01/23 20:00 12/02/23 08:23 12/02/23 08:26 Temperature 97.9 F 97.1 F Pulse Rate 76 85 Respiratory Rate 16 18 Blood Pressure 175/94 H 157/89 H 157/89 H Pulse Oximetry 95 95 Oxygen Delivery Method Room Air Room Air BMI result Body Mass Index 26.9 Labs 11/27/23 08:09 Labs: Laboratory Results - last 48 hr 11/30/23 12/01/23 12/01/23 20:26 06:39 19:43 POC Glucose 258 H 286 H 230 H 12/02/23 06:46 POC Glucose 193 H Medications Medications Current Medications Acetaminophen (Acetaminophen 325 Mg Tablet) 650 mg PO Q6H PRN PRN Reason: Headache/Pain Mild Scale (1-3) Last Admin: 12/02/23 08:25 Dose: 650 mg Al Hydroxide/Mg Hydroxide (Magnesium Hydrox/Alum Hydrox 30 Ml Oral.Susp) 30 ml PO Q6H PRN PRN Reason: Heartburn/Nausea Albuterol Sulfate (Albuterol Sulfate 90 Mcg 8 Gm Inhaler) 1 puff INHALE BID PRN PRN Reason: Wheezing Last Admin: 12/02/23 08:32 Dose: 1 puff Amlodipine Besylate (Amlodipine Besylate 2.5 Mg Tablet) 12.5 mg PO DAILY [facility]; Protocol Last Admin: 12/02/23 08:26 Dose: 12.5 mg Apixaban (Apixaban 5 Mg Tablet) 5 mg PO BID [facility] Last Admin: 12/02/23 08:26 Dose: 5 mg Artificial Tears (Artificial Tears 15 Ml Drops) 2 drop EYE-BOTH Q4H PRN PRN Reason: dry eyes Last Admin: 12/02/23 08:27 Dose: 2 drop Aspirin (Aspirin Enteric Coated 81 Mg Tablet.Dr) 81 mg PO DAILY [facility] Atorvastatin Calcium (Atorvastatin Calcium 80 Mg Tablet) 80 mg PO BEDTIME [facility] Last Admin: 12/01/23 20:12 Dose: 80 mg Cyanocobalamin (Cyanocobalamin (Vitamin B-12) 1,000 Mcg Tablet) 1,000 mcg PO DAILY [facility] Last Admin: 12/02/23 08:26 Dose: 1,000 mcg Cyanocobalamin (Cyanocobalamin (Vitamin B-12) 500 Mcg Tablet) 500 mcg PO DAILY [facility] Last Admin: 12/02/23 08:26 Dose: 500 mcg Donepezil HCl (Donepezil Hcl 5 Mg Tablet) 5 mg PO DAILY [facility] Last Admin: 12/02/23 08:25 Dose: 5 mg Famotidine (Famotidine 20 Mg Tablet) 20 mg PO BID PRN PRN Reason: Dyspepsia Fluoxetine HCl (Fluoxetine Hcl 20 Mg Capsule) 20 mg PO DAILY [facility] Last Admin: 12/02/23 08:26 Dose: 20 mg Folic Acid (Folic Acid 1 Mg Tablet) 1 mg PO DAILY [facility] Last Admin: 12/02/23 08:26 Dose: 1 mg Gabapentin (Gabapentin 100 Mg Capsule) 100 mg PO BEDTIME [facility] Hydroxyzine HCl (Hydroxyzine Hcl 25 Mg Tablet) 25 mg PO Q6H PRN PRN Reason: Anxiety Levetiracetam (Levetiracetam 1,000 Mg Tablet) 500 mg PO BID [facility] Last Admin: 12/02/23 08:25 Dose: 500 mg Magnesium Hydroxide (Milk Of Magnesia 30 Ml Oral.Susp) 30 ml PO DAILY PRN PRN Reason: Constipation Melatonin (Melatonin 3 Mg Tablet) 3 mg PO BEDTIME PRN PRN Reason: Insomnia Naltrexone HCl (Naltrexone Hcl 50 Mg Tablet) 50 mg PO DAILY [facility] Last Admin: 12/02/23 08:26 Dose: 50 mg Nicotine Polacrilex (Nicotine Polacrilex 2 Mg Gum) 4 mg BUCCAL Q2H PRN PRN Reason: Nicotine Cravings Olanzapine (Olanzapine 5 Mg Tablet) 5 mg PO BEDTIME [facility] Last Admin: 12/01/23 20:13 Dose: 5 mg Olanzapine (Olanzapine 5 Mg Tablet) 5 mg PO BID PRN PRN Reason: Agitation Thiamine HCl (Thiamine Hcl 100 Mg Tablet) 100 mg PO DAILY [facility] Last Admin: 12/02/23 08:26 Dose: 100 mg Trazodone HCl (Trazodone Hcl 50 Mg Tablet) 50 mg PO BEDTIME MRX1 PRN PRN Reason: Insomnia Last Admin: 12/01/23 20:13 Dose: 50 mg Vitamin D (Cholecalciferol (Vitamin D3) 25 Mcg Tablet) 25 mcg PO DAILY [facility] Last Admin: 12/02/23 08:26 Dose: 25 mcg Allergies Allergies Allergy/AdvReac Type Severity Reaction Status Date / Time red dye Allergy Severe Anaphylaxis Verified 11/27/23 10:49 Iodinated Contrast Media Allergy Unknown Verified 11/26/23 23:52 lisinopril Allergy Unknown Verified 11/26/23 23:52 shellfish derived Allergy Swelling Verified 11/27/23 10:50 Assessment & Plan Assessment & Plan (1) Diabetic polyneuropathy: Status: Acute Code(s): E11.42 - Type 2 diabetes mellitus with diabetic polyneuropathy (2) Type 2 diabetes mellitus: Status: Acute Code(s): E11.9 - Type 2 diabetes mellitus without complications (3) Seizure disorder: Status: Acute Code(s): G40.909 - Epilepsy, unspecified, not intractable, without status epilepticus (4) Cognitive impairment: Status: Acute Code(s): R41.89 - Other symptoms and signs involving cognitive functions and awareness (5) Alcohol use disorder: Status: Acute Code(s): F10.90 - Alcohol use, unspecified, uncomplicated (6) Bilateral pulmonary embolism: Status: Acute Code(s): I26.99 - Other pulmonary embolism without acute cor pulmonale (7) Major depressive disorder: Status: Acute Code(s): F32.9 - Major depressive disorder, single episode, unspecified (8) History of CVA (cerebrovascular accident): Status: Acute Code(s): Z86.73 - Personal history of transient ischemic attack (TIA), and cerebral infarction without residual deficits Plan 11/26: continue transfer medications. pt appears well on his way to [facility] from a presumed delirium related to his B/L PEs in late october. observe for several days, return home if stable. 11/27: stable. continue current mgmt. 11/28 continue same treatment 11/29: Continue treatment 11/30: HTN- Increase Amlodipine to 12.5 mg a.m. 12/01 keep same treatment Reason for continued inpatient stay Substantial Risk for: inability to function, rapid decompensation and med/psych decompensation Time Spent With Patient Time: Total time managing care of this patient today __20__ minutes.
[2023-12-02 20:00] VITALS: BP 157/74; PULSE 71; RESP 18; TEMP 36.1; O2SAT 97
[2023-12-02] MEDS: traZODone HCL 50 MG TABLET PO (20:28)
[2023-12-02] MEDS: Atorvastatin Calcium 80 MG TABLET PO (20:29)
[2023-12-02] MEDS: Melatonin 3 MG TABLET PO (20:30)
[2023-12-02] MEDS: OLANZapine 5 MG TABLET PO (20:30)
[2023-12-03 06:43] LABS: Glucose, Whole Blood 248 mg/dL (60-115)
[2023-12-03 09:02] VITALS: BP 137/82; PULSE 75; RESP 15; TEMP 36.4; O2SAT 96
[2023-12-03] MEDS: Thiamine HCL 100 MG TABLET PO (09:03)
[2023-12-03] MEDS: FLUoxetine HCl 20 MG CAPSULE PO (09:03)
[2023-12-03] MEDS: Naltrexone HCl 50 MG TABLET PO (09:03)
[2023-12-03] MEDS: Cyanocobalamin (Vitamin B-12) 1,000 MCG TABLET 1000 MCG PO (09:03)
[2023-12-03] MEDS: Folic Acid 1 MG TABLET PO (09:03)
[2023-12-03] MEDS: levETIRAcetam 1,000 MG TABLET 500 MG PO ×2 (09:03→21:25)
[2023-12-03] MEDS: Cyanocobalamin (Vitamin B-12) 500 MCG TABLET PO (09:03)
[2023-12-03] MEDS: Donepezil HCl 5 MG TABLET PO (09:03)
[2023-12-03] MEDS: Apixaban 5 MG TABLET PO ×2 (09:05→21:25)
[2023-12-03] MEDS: amLODIPine Besylate 2.5 MG TABLET 12.5 MG PO (09:05)
[2023-12-03] MEDS: Cholecalciferol (Vitamin D3) 25 MCG TABLET PO (09:05)
[2023-12-03] MEDS: Artificial Tears 15 ML DROPS 2 DROP EYE-BOTH ×2 (09:10→21:32)
--- NOTE | 2023-12-03 13:51 | HO.PSYCHPN ---
Subjective Subjective Date of Service: 12/03/23 Reason For Visit: Major Depressive Disorder Subjective Notes: Conditional Voluntary Interim History: The nursing staff reported the patient had been compliant with treatment common cooperative. The professor of social work reported the patient is hostile whenever people addressed about his alcohol problem at this moment he is more stable and will plan for his discharge tomorrow. On interview the patient denies new symptoms pleasant cooperative easily redirectable. Mental Status Exam Mental Status Exam Patient Appearance: Appropriate Patient Orientation: Person and Situation Level of Consciousness: Awake and Appropriate Patient Behavior: Guarded and Passive Mood Description: Withdrawn Affect Description: Constricted Patient Cognition Impaired: Yes Ability to Follow Directions: Good Speech Pattern: Clear Hallucinations: None Delusions: Not Present Thought Process: Distracted and Slowed Thinking Thought Content: positive for [place] and positive for Poverty of Content Judgement: Fair Diagnostics Vital Signs (24Hr): Vital Signs - 24 hr 12/02/23 20:00 12/03/23 09:02 Temperature 97 F 97.5 F Pulse Rate 71 75 Respiratory Rate 18 15 Blood Pressure 157/74 H 137/82 Pulse Oximetry 97 96 Oxygen Delivery Method Room Air Room Air BMI result Body Mass Index 26.9 Labs 11/27/23 08:09 Labs: Laboratory Results - last 48 hr 12/01/23 12/02/23 12/03/23 19:43 06:46 06:31 POC Glucose 230 H 193 H 248 H Medications Medications Current Medications Acetaminophen (Acetaminophen 325 Mg Tablet) 650 mg PO Q6H PRN PRN Reason: Headache/Pain Mild Scale (1-3) Last Admin: 12/02/23 08:25 Dose: 650 mg Al Hydroxide/Mg Hydroxide (Magnesium Hydrox/Alum Hydrox 30 Ml Oral.Susp) 30 ml PO Q6H PRN PRN Reason: Heartburn/Nausea Albuterol Sulfate (Albuterol Sulfate 90 Mcg 8 Gm Inhaler) 1 puff INHALE BID PRN PRN Reason: Wheezing Last Admin: 12/02/23 20:28 Dose: 1 puff Amlodipine Besylate (Amlodipine Besylate 2.5 Mg Tablet) 12.5 mg PO DAILY [facility]; Protocol Last Admin: 12/03/23 09:05 Dose: 12.5 mg Apixaban (Apixaban 5 Mg Tablet) 5 mg PO BID [facility] Last Admin: 12/03/23 09:05 Dose: 5 mg Artificial Tears (Artificial Tears 15 Ml Drops) 2 drop EYE-BOTH Q4H PRN PRN Reason: dry eyes Last Admin: 12/03/23 09:10 Dose: 2 drop Aspirin (Aspirin Enteric Coated 81 Mg Tablet.Dr) 81 mg PO DAILY [facility] Atorvastatin Calcium (Atorvastatin Calcium 80 Mg Tablet) 80 mg PO BEDTIME [facility] Last Admin: 12/02/23 20:29 Dose: 80 mg Cyanocobalamin (Cyanocobalamin (Vitamin B-12) 1,000 Mcg Tablet) 1,000 mcg PO DAILY [facility] Last Admin: 12/03/23 09:03 Dose: 1,000 mcg Cyanocobalamin (Cyanocobalamin (Vitamin B-12) 500 Mcg Tablet) 500 mcg PO DAILY [facility] Last Admin: 12/03/23 09:03 Dose: 500 mcg Donepezil HCl (Donepezil Hcl 5 Mg Tablet) 5 mg PO DAILY [facility] Last Admin: 12/03/23 09:03 Dose: 5 mg Famotidine (Famotidine 20 Mg Tablet) 20 mg PO BID PRN PRN Reason: Dyspepsia Fluoxetine HCl (Fluoxetine Hcl 20 Mg Capsule) 20 mg PO DAILY [facility] Last Admin: 12/03/23 09:03 Dose: 20 mg Folic Acid (Folic Acid 1 Mg Tablet) 1 mg PO DAILY [facility] Last Admin: 12/03/23 09:03 Dose: 1 mg Gabapentin (Gabapentin 100 Mg Capsule) 100 mg PO BEDTIME [facility] Hydroxyzine HCl (Hydroxyzine Hcl 25 Mg Tablet) 25 mg PO Q6H PRN PRN Reason: Anxiety Levetiracetam (Levetiracetam 1,000 Mg Tablet) 500 mg PO BID [facility] Last Admin: 12/03/23 09:03 Dose: 500 mg Magnesium Hydroxide (Milk Of Magnesia 30 Ml Oral.Susp) 30 ml PO DAILY PRN PRN Reason: Constipation Melatonin (Melatonin 3 Mg Tablet) 3 mg PO BEDTIME PRN PRN Reason: Insomnia Last Admin: 12/02/23 20:30 Dose: 3 mg Naltrexone HCl (Naltrexone Hcl 50 Mg Tablet) 50 mg PO DAILY [facility] Last Admin: 12/03/23 09:03 Dose: 50 mg Nicotine Polacrilex (Nicotine Polacrilex 2 Mg Gum) 4 mg BUCCAL Q2H PRN PRN Reason: Nicotine Cravings Olanzapine (Olanzapine 5 Mg Tablet) 5 mg PO BEDTIME [facility] Last Admin: 12/02/23 20:30 Dose: 5 mg Olanzapine (Olanzapine 5 Mg Tablet) 5 mg PO BID PRN PRN Reason: Agitation Thiamine HCl (Thiamine Hcl 100 Mg Tablet) 100 mg PO DAILY [facility] Last Admin: 12/03/23 09:03 Dose: 100 mg Trazodone HCl (Trazodone Hcl 50 Mg Tablet) 50 mg PO BEDTIME MRX1 PRN PRN Reason: Insomnia Last Admin: 12/02/23 20:28 Dose: 50 mg Vitamin D (Cholecalciferol (Vitamin D3) 25 Mcg Tablet) 25 mcg PO DAILY [facility] Last Admin: 12/03/23 09:05 Dose: 25 mcg Allergies Allergies Allergy/AdvReac Type Severity Reaction Status Date / Time red dye Allergy Severe Anaphylaxis Verified 11/27/23 10:49 Iodinated Contrast Media Allergy Unknown Verified 11/26/23 23:52 lisinopril Allergy Unknown Verified 11/26/23 23:52 shellfish derived Allergy Swelling Verified 11/27/23 10:50 Assessment & Plan Assessment & Plan (1) Diabetic polyneuropathy: Status: Acute Code(s): E11.42 - Type 2 diabetes mellitus with diabetic polyneuropathy (2) Type 2 diabetes mellitus: Status: Acute Code(s): E11.9 - Type 2 diabetes mellitus without complications (3) Seizure disorder: Status: Acute Code(s): G40.909 - Epilepsy, unspecified, not intractable, without status epilepticus (4) Cognitive impairment: Status: Acute Code(s): R41.89 - Other symptoms and signs involving cognitive functions and awareness (5) Alcohol use disorder: Status: Acute Code(s): F10.90 - Alcohol use, unspecified, uncomplicated (6) Bilateral pulmonary embolism: Status: Acute Code(s): I26.99 - Other pulmonary embolism without acute cor pulmonale (7) Major depressive disorder: Status: Acute Code(s): F32.9 - Major depressive disorder, single episode, unspecified (8) History of CVA (cerebrovascular accident): Status: Acute Code(s): Z86.73 - Personal history of transient ischemic attack (TIA), and cerebral infarction without residual deficits Plan 11/26: continue transfer medications. pt appears well on his way to [facility] from a presumed delirium related to his B/L PEs in late october. observe for several days, return home if stable. 11/27: stable. continue current mgmt. 11/28 continue same treatment 11/29: Continue treatment 11/30: HTN- Increase Amlodipine to 12.5 mg a.m. 12/01 keep same treatment 12/01 keep same treatment, discharge tomorrow Reason for continued inpatient stay Substantial Risk for: inability to function, rapid decompensation and med/psych decompensation Time Spent With Patient Time: Total time managing care of this patient today __20__ minutes.
[2023-12-03 20:00] VITALS: BP 108/72; PULSE 70; RESP 18; TEMP 36.6; O2SAT 95
[2023-12-03] MEDS: Atorvastatin Calcium 80 MG TABLET PO (21:25)
[2023-12-03] MEDS: traZODone HCL 50 MG TABLET PO (21:25)
[2023-12-03] MEDS: OLANZapine 5 MG TABLET PO (21:25)
[2023-12-03] MEDS: Albuterol Sulfate 90 MCG 8 GM INHALER 1 PUFF INHALE (21:32)
[2023-12-03 21:34] LABS: Glucose, Whole Blood 352 mg/dL (60-115)
[2023-12-03] MEDS: Insulin Lispro 100 UNIT/ML 3 ML VIAL SUBCUT (22:54)
[2023-12-03] MEDS: metFORMIN HCl 500 MG TABLET PO (22:54)
[2023-12-04 01:22] LABS: Glucose, Whole Blood 261 mg/dL (60-115)
--- NOTE | 2023-12-04 05:06 | PC.NURSE ---
HS POC 352, Dr Brito notified. Patient had admitted to eating 2 peanut butter and jelly sandwiches. Orders given for Lispro sliding scale insulin, POC's QID and Metformin 500 mg PO BID with first dose to be given now. Patient given 10 units SQ according to protocol. Repeat POC @ 0115 was 261. Provider notified of result, no coverage necessary. Diabetic teaching done with the patient who verbalized understanding.
[2023-12-04] MEDS: Albuterol Sulfate 90 MCG 8 GM INHALER 1 PUFF INHALE (06:04)
[2023-12-04 06:48] LABS: Glucose, Whole Blood 137 mg/dL (60-115)
[2023-12-04 08:23] LABS: Creatinine Clr Calc Pharmacy 66.8; Estimated Glomerular Filt Rate > 60
[2023-12-04 08:28] VITALS: BP 150/84; PULSE 85; RESP 18; TEMP 36; O2SAT 97
[2023-12-04] MEDS: Folic Acid 1 MG TABLET PO (08:32)
[2023-12-04] MEDS: Thiamine HCL 100 MG TABLET PO (08:32)
[2023-12-04] MEDS: metFORMIN HCl 500 MG TABLET PO (08:33)
[2023-12-04] MEDS: Cyanocobalamin (Vitamin B-12) 500 MCG TABLET PO (08:33)
[2023-12-04] MEDS: levETIRAcetam 1,000 MG TABLET 500 MG PO (08:33)
[2023-12-04] MEDS: Donepezil HCl 5 MG TABLET PO (08:34)
[2023-12-04] MEDS: FLUoxetine HCl 20 MG CAPSULE PO (08:34)
[2023-12-04] MEDS: Cholecalciferol (Vitamin D3) 25 MCG TABLET PO (08:34)
[2023-12-04] MEDS: Cyanocobalamin (Vitamin B-12) 1,000 MCG TABLET 1000 MCG PO (08:34)
[2023-12-04] MEDS: amLODIPine Besylate 2.5 MG TABLET 12.5 MG PO (08:34)
[2023-12-04] MEDS: Naltrexone HCl 50 MG TABLET PO (08:34)
[2023-12-04] MEDS: Apixaban 5 MG TABLET PO (08:34)
[2023-12-04] MEDS: Insulin Lispro 100 UNIT/ML 3 ML VIAL SUBCUT (11:41)
[2023-12-04 11:43] LABS: Glucose, Whole Blood 307 mg/dL (60-115)
--- NOTE | 2023-12-04 13:01 | PM.PSYDC ---
DS: Providers Provider Date of Service: 12/04/23 Date of admission: 11/26/23 23:17 Date of discharge: 12/04/23 Primary care physician: Unknown Physician Consults: 11/26/23 23:52 Consult to Hospitalist Routine Comment: Consulting Provider: Hospitalist Reason For Exam: H&P, new admit DS: Diagnosis Discharge Diagnosis (1) Diabetic polyneuropathy: Status: Acute (2) Type 2 diabetes mellitus: Status: Acute (3) Seizure disorder: Status: Acute (4) Cognitive impairment: Status: Acute (5) Alcohol use disorder: Status: Acute (6) Bilateral pulmonary embolism: Status: Acute (7) Major depressive disorder: Status: Acute (8) History of CVA (cerebrovascular accident): Status: Acute DS: Medications Discharge Medications Home Medications: Home Medications ?Medication ?Instructions ?Recorded ?Confirmed albuterol sulfate 90 mcg/actuation 1 inh inhalation BID PRN Wheezing 11/27/23 11/27/23 aerosol inhaler amlodipine 10 mg tablet 10 mg PO DAILY 11/27/23 11/27/23 apixaban 5 mg tablet 5 mg PO BID 11/27/23 11/27/23 aspirin 81 mg capsule 81 mg PO DAILY 11/27/23 11/27/23 atorvastatin 80 mg tablet 80 mg PO DAILY 11/27/23 11/27/23 carboxymethylcellulose sodium 0.5 1 drp ophthalmic (eye) TID PRN Dry 11/27/23 11/27/23 % eye drops Eye(S) cholecalciferol (vitamin D3) 25 25 mcg PO DAILY 11/27/23 11/27/23 mcg (1,000 unit) tablet cyanocobalamin (vitamin B-12) 1,000 mcg PO DAILY 11/27/23 11/27/23 1,000 mcg tablet donepezil 5 mg tablet 5 mg PO DAILY 11/27/23 11/27/23 epinephrine 0.3 mg/0.3 mL 0.3 mg IM ONCE PRN Anaphylaxis 11/27/23 11/27/23 injection, auto-injector famotidine 20 mg tablet 20 mg PO BID PRN Dyspepsia 11/27/23 11/27/23 fluoxetine 20 mg capsule 20 mg PO DAILY 11/27/23 11/27/23 folic acid 1 mg tablet 1 mg PO DAILY 11/27/23 11/27/23 gabapentin 100 mg capsule 100 mg PO BEDTIME 11/27/23 11/27/23 levetiracetam 500 mg tablet 500 mg PO BID 11/27/23 11/27/23 (Keppra) melatonin 3 mg tablet 3 mg PO BEDTIME PRN Insomnia 11/27/23 11/27/23 naltrexone 50 mg tablet 50 mg PO DAILY 11/27/23 11/27/23 olanzapine 5 mg disintegrating 5 mg PO BEDTIME 11/27/23 11/27/23 tablet (Zyprexa Zydis) olanzapine 5 mg disintegrating 5 mg PO BID PRN Agitation 11/27/23 11/27/23 tablet (Zyprexa Zydis) thiamine HCl (vitamin B1) 100 mg 100 mg PO DAILY 11/27/23 11/27/23 tablet trazodone 100 mg tablet 100 mg PO BEDTIME 11/27/23 11/27/23 Mental Status Exam Mental Status Exam Patient Appearance: Appropriate Patient Orientation: Person and Situation Level of Consciousness: Awake and Appropriate Patient Behavior: Appropriate and Cooperative Mood Description: Withdrawn Affect Description: Constricted Patient Cognition Impaired: Yes Ability to Follow Directions: Good Speech Pattern: Clear Hallucinations: None Delusions: Not Present Thought Process: Distracted and Slowed Thinking Thought Content: positive for [place] and positive for Poverty of Content Judgement: Fair Data Data Completed and Pending Completed studies during hospitalization [Text1]: 11/28/23 11/28/23 11/28/23 05:46 08:31 20:06 Creatinine Estim Creat Clear Calc Estimated GFR POC Glucose 116 H 242 H 154 H Vitamin B12 Folate T.pallidum Ab (EIA) 11/29/23 11/29/23 11/29/23 06:33 08:15 20:58 Creatinine Estim Creat Clear Calc Estimated GFR POC Glucose 109 234 H Vitamin B12 1830 H Folate 9.9 T.pallidum Ab (EIA) Nonreactive 11/30/23 11/30/23 12/01/23 06:27 20:26 06:39 Creatinine Estim Creat Clear Calc Estimated GFR POC Glucose 106 258 H 286 H Vitamin B12 Folate T.pallidum Ab (EIA) 12/01/23 12/02/23 12/03/23 19:43 06:46 06:31 Creatinine Estim Creat Clear Calc Estimated GFR POC Glucose 230 H 193 H 248 H Vitamin B12 Folate T.pallidum Ab (EIA) 12/03/23 12/04/23 12/04/23 21:24 01:17 06:36 Creatinine Estim Creat Clear Calc Estimated GFR POC Glucose 352 H* 261 H 137 H Vitamin B12 Folate T.pallidum Ab (EIA) 12/04/23 12/04/23 07:59 11:35 Creatinine 1.03 Estim Creat Clear Calc 66.8 Estimated GFR > 60 POC Glucose 307 H Vitamin B12 Folate T.pallidum Ab (EIA) DS: Summary Hospital Course Hospital Course: The patient is a 63-year-old male with a past history of seizure disorder, alcohol use disorder, dementia and other medical comorbidities who was brought to the emergency room of another hospital for exacerbation of agitation in the context of a recent relapse of alcohol. The patient was assessed by crisis and transferring to this facility for psychiatric stabilization. On admission, the patient was pleasant, cooperative slightly confused but easily redirectable. We contact [facility] and found out his medication list and we continue with the same treatment. We gather collateral information since the patient was a very poor historian. According to his family, specifically his , the patient has a cognitive disorder that worsened whenever he relapsed on alcohol. He used to be on Vivitrol shots but at this point he is receiving Violette p.o.. We continue with the same medications, the patient was pleasant, cooperative, active in groups but very resistant with the idea of sobriety, he minimized his substance abuse. We continue with a regular medications and since there were no safety concerns discharge planning was discussed. Time spent discussing smoking cessation with patient: 3 to 10 minutes Status at Discharge Functional status at discharge: independent ambulation Overall status at discharge: patient is back to baseline Time Spent with Patient Time attestation: Total time managing care of this patient today _30___ minutes. Time spent: Less than 30 minutes Discharge Plan Discharge Anticipated Discharge Date/Time: 12/04/23 13:16 Patient Disposition: Home, Self-Care Discharge Diagnosis: Dementia multifactorial Alcohol use disorder Major depressive disorder Referrals: Jada Terrell [facility] [Other] - 12/18/23 9:00 am (Your next appointment with your social insurance analyst at the [facility] is 12/18/23 at 9am in person. ) Dr Sabrina MDtoe lining closer [facility] [Other] - 12/11/23 10:30 am (Yur next appointment with your psychiatrist at the [facility] is in person on 12/11/23 at 10:30am.) Rachael Meade RN [facility] [Other] - 12/10/23 8:30 am (Your next appointment with your [facility] nurse Rachael is scheduled for 8:30am on 12/10/23 in person. ) Dr Rayo MD intensive care specialist [facility] [Other] - 12/16/23 11:30 am (Your next appointment with your final inspector and tester at the [facility] is scheduled for 12/16/23 at 11:30am. Consult was placed by [facility] regarding [facility]. [facility] has indicated that they contract with [facility] at [address] [place] [address] . The [facility] stated that the process is contacting the [facility] Program and requesting a tour of program. Once you have visited the site and feel it is a good fit to contact the [facility] and request authorization for program with your primary care office. ) Discharge Medications: New amlodipine 2.5 mg Tablet 12.5 mg PO DAILY 30 Days Qty: 150 0RF Protocol: Hold for SBP< HOLD for SBP < : 90 insulin lispro [Admelog U-100 Insulin lispro] 100 unit/mL Solution See Protocol subcut QIDACHS Qty: 10 0RF Protocol: Insulin Correction Scale Less than or equal to 110 ---- Give (units): 0 111 to 150 Give (units): 0 151 to 200 Give (units): 2 201 to 250 Give (units): 4 251 to 300 Give (units): 6 301 to 350 Give (units): 8 Greater than 350 Give (units): 10 Call MD if Blood Glucose > : 350 metformin 500 mg Tablet 500 mg PO BIDWM 30 Days Qty: 60 0RF Continued atorvastatin 80 mg tablet 80 mg PO DAILY 30 Days Qty: 30 0RF donepezil 5 mg Tablet 5 mg PO DAILY 30 Days Qty: 30 0RF levetiracetam [Keppra] 500 mg Tablet 500 mg PO BID 30 Days Qty: 60 0RF naltrexone 50 mg Tablet 50 mg PO DAILY 30 Days Qty: 30 0RF cyanocobalamin (vitamin B-12) 1,000 mcg Tablet 1,000 mcg PO DAILY Qty: 30 0RF thiamine HCl (vitamin B1) 100 mg Tablet 100 mg PO DAILY 30 Days Qty: 30 0RF melatonin 3 mg Tablet 3 mg PO BEDTIME PRN (Reason: Insomnia) Qty: 30 0RF famotidine 20 mg Tablet 20 mg PO BID PRN (Reason: Dyspepsia) 30 Days Qty: 60 0RF trazodone 100 mg Tablet 100 mg PO BEDTIME 30 Days Qty: 30 0RF carboxymethylcellulose sodium 0.5 % Drops 1 drp OPHTHALMIC (EYE) TID PRN (Reason: Dry Eye(S)) 30 Days Qty: 5 0RF folic acid 1 mg tablet 1 mg PO DAILY 30 Days Qty: 30 0RF gabapentin 100 mg Capsule 100 mg PO BEDTIME 30 Days Qty: 30 0RF epinephrine 0.3 mg/0.3 mL Auto-Injector 0.3 mg IM ONCE PRN (Reason: Anaphylaxis) 30 Days Qty: 1 0RF albuterol sulfate 90 mcg/actuation Hfa Aerosol Inhaler 1 inh INHALATION BID PRN (Reason: Wheezing) 30 Days Qty: 1 0RF fluoxetine 20 mg Capsule 20 mg PO DAILY 30 Days Qty: 30 0RF olanzapine [Zyprexa Zydis] 5 mg Tablet,Disintegrating 5 mg PO BID PRN (Reason: Agitation) 30 Days Qty: 30 0RF olanzapine [Zyprexa Zydis] 5 mg Tablet,Disintegrating 5 mg PO BEDTIME 30 Days Qty: 30 0RF cholecalciferol (vitamin D3) 25 mcg (1,000 unit) Tablet 25 mcg PO DAILY 30 Days Qty: 30 0RF apixaban 5 mg Tablet 5 mg PO BID 30 Days Qty: 60 0RF aspirin 81 mg Capsule 81 mg PO DAILY 30 Days Qty: 30 0RF Discontinued amlodipine 10 mg Tablet 10 mg PO DAILY Discharge Orders: Discharge Order (Routine); Ordered 12/04/23 Ordered By: Aden Betancourt Diet: Advance to usual diet Activity on Discharge: As tolerated Stand Alone Forms: Patient Portal Discharge page Print Language: Yakut Care Plan Goals: Care plan goals achieved in this admission Health Concerns: Continue with his regular providers at the [facility] Plan of Treatment: Continue with treatment as an outpatient with psychiatric treatment Assessment: The patient is an elderly male with a past history of alcohol use disorder, dementia and other medical comorbidities who was brought from the emergency room of another hospital for exacerbation of agitation in the context of a recent relapse of alcohol. The patient is cognitively impaired but he was safe in the community. Ready to be go back with his regular providers.
== END 2023-12-04 16:02 | disposition home or self-care (01) | DRG 881 ==
PROVIDERS: Internal Medicine; Psychiatry & Neurology Psychiatry; Registered Nurse; Admitting Provider Psychiatry & Neurology Psychiatry; Visit Provider Psychiatry & Neurology Psychiatry
DX: F32.9 Major depressive disorder, single episode, unspecified (principal); E11.42 Type 2 diabetes mellitus with diabetic polyneuropathy; G40.909 Epilepsy, unspecified, not intractable, without status epilepticus; F03.90 Unspecified dementia, unspecified severity, without behavioral disturbance, psychotic disturbance, mood disturbance, and anxiety; F10.90 Alcohol use, unspecified, uncomplicated; I10 Essential (primary) hypertension; J45.20 Mild intermittent asthma, uncomplicated; Z79.01 Long term (current) use of anticoagulants; Z79.82 Long term (current) use of aspirin; Z79.84 Long term (current) use of oral hypoglycemic drugs; Z79.899 Other long term (current) drug therapy; Z86.73 Personal history of transient ischemic attack (TIA), and cerebral infarction without residual deficits; Z86.711 Personal history of pulmonary embolism
CPT/HCPCS: 36415; 80053; 80061; 82565; 82607; 82746; 82947; 83036; 86780

== ENCOUNTER → 2023-11-26 23:17 | Outpatient (BNV) | payer OTHER, SELFPAY | PROVIDERS: Admitting Provider Psychiatry & Neurology Psychiatry; Visit Provider Psychiatry & Neurology Psychiatry | DX: F32.2 Major depressive disorder, single episode, severe without psychotic features (principal); F10.90 Alcohol use, unspecified, uncomplicated; R41.89 Other symptoms and signs involving cognitive functions and awareness; Z86.73 Personal history of transient ischemic attack (TIA), and cerebral infarction without residual deficits | CPT/HCPCS: 90792; 99231; 99232; 99238 ==

== ENCOUNTER → 2023-11-26 23:17 | Outpatient (BNV) | payer OTHER, MEDICARE, SELFPAY | PROVIDERS: Admitting Provider Psychiatry & Neurology Psychiatry; Visit Provider Physician Assistant | DX: Z02.2 Encounter for examination for admission to residential institution (principal) | CPT/HCPCS: 99429 ==